=== PATIENT | female | born 1930 ===

== ENCOUNTER → 2019-06-14 | Outpatient (REF) | payer MEDICARE ==
[~2019-06-14] MED LIST: ACET65TA; CLEO300C; COUM1TAB18; No Historical Meds; PERC5TAB8; PERC7.5T8; [UNRECOGNIZED DRUG - REMARK]
[2019-06-14 14:53] LABS: FREE T4 0.83 NG/DL (0.76-1.46); THYROID STIMULATING HORMONE 3.27 uIU/ML (0.358-3.740)
== END ==
LOC: M LABDRAW1 13:32
PROVIDERS: ATTEND Otolaryngology Otolaryngic Allergy
DX: R49.8 Other voice and resonance disorders (principal)